=== PATIENT | female | born 1935 | race Caucasian/White ===

== ENCOUNTER 2023-07-08 21:12 | Inpatient (IN) | payer MEDICARE, OTHER ==
[~2023-07-08] VITALS: Ht 167.6 cm; Wt 59.0 kg
[2023-07-08 22:52] LABS: BASOPHILS # (AUTO) 0.1 K/uL (0.0-0.2); BASOPHILS % (AUTO) 1.3 % (0.0-2.0); EOSINOPHILS # (AUTO) 0.2 K/uL (0.0-0.7); EOSINOPHILS % (AUTO) 3.6 % (0.0-6.0); HEMATOCRIT 33 % (33-45); HEMOGLOBIN 11.1 g/dL (11.5-14.8); LYMPHOCYTES # (AUTO) 0.6 K/uL (0.8-4.8); LYMPHOCYTES % (AUTO) 12.8 % (20.0-44.0); MEAN CORPUSCULAR HEMOGLOBIN 31 PG (26.0-33.0); MEAN CORPUSCULAR HGB CONC 34 g/dl (31.0-36.0); MEAN CORPUSCULAR VOLUME 92 fL (82-100); MONOCYTES # (AUTO) 0.5 K/uL (0.1-1.30); MONOCYTES % (AUTO) 10.9 % (2.0-12.0); NEUTROPHILS # (AUTO) 3.5 K/uL (1.8-8.9); NEUTROPHILS % (AUTO) 71.4 % (43.0-81.0); PLATELET COUNT (AUTO) 239 K/uL (150-450); RED BLOOD CELL COUNT(AUTO) 3.59 MIL/uL (4.0-5.2); RED CELL DISTRIBUTION WIDTH 12.8 % (11.5-15.0); WHITE BLOOD COUNT (AUTO) 4.9 K/uL (4.3-11.0)
[2023-07-08 23:07] LABS: PARTIAL THROMBOPLASTIN TIME 26.1 SEC (24.3-34.3); PROTHROMBIN TIME 10.6 SECS (9.2-11.1)
[2023-07-08 23:09] LABS: LACTIC ACID 1.2 mmol/L (0.4-2.0)
[2023-07-08 23:14] LABS: APPEARANCE,URINE CLEAR (CLEAR); BILIRUBIN,URINE NEGATIVE (NEGATIVE); BLOOD, URINE TRACE-INTA Ery/uL (NEGATIVE); COLOR,URINE YELLOW (YELLOW); KETONES,URINE NEGATIVE (NEGATIVE); LEUKOCYTE ESTERASE ,URINE 1+ (NEGATIVE); NITRITE, URINE NEGATIVE (NEGATIVE); PROTEIN,URINE NEGATIVE (NEGATIVE); UGLUCOSE NEGATIVE (NEGATIVE); UROBILINOGEN,URINE 0.2 EU/dL (0.2)
[2023-07-08 23:15] LABS: CARBON DIOXIDE 32 mmol/L (21-32); CHLORIDE 102 mmol/L (98-107); CREATININE 0.7 mg/dL (0.6-1.3); GLUCOSE 123 mg/dL (74-106); POTASSIUM 3.1 mmol/L (3.5-5.1); SODIUM SERUM 140 mmol/L (136-145); UREA NITROGEN, BLOOD 16 mg/dL (7-18)
[2023-07-08 23:19] LABS: ALANINE AMINOTRANSFERASE 13 U/L (12-78); ALBUMIN 3.5 g/dL (3.4-5.0); ALKALINE PHOSPHATASE 130 U/L (46-116); ASPARTATE AMINOTRANSFERASE 15 U/L (15-37); BILIRUBIN,DIRECT 0.1 mg/dL (0.0-0.2); BILIRUBIN,TOTAL 0.3 mg/dL (0.2-1.0); TOTAL PROTEIN, SERUM 7.2 g/dL (6.4-8.2)
[2023-07-08] MEDS ORDERED: POTASSIUM CHLORIDE 20 MEQ TAB.PRT.SR PO ONE (23:30)
[2023-07-08] MEDS ORDERED: CEFTRIAXONE 1GM BAG (ER ONLY) 1 GM/50 ML PIGGYBACK IV ONE (23:30)
[2023-07-08 23:43] LABS: ADD URINE CULTURE YES; BACTERIA,URINE 2+ /HPF (None Seen); SQUAMOUS EPITHELIAL CELL,UR 0-2 /HPF (None Seen)
[2023-07-09] MEDS ORDERED: MAG HYDROX/AL HYDROX/SIMETH 30 ML UDC PO PRN
[2023-07-09] MEDS ORDERED: ZOLPIDEM TARTRATE 5 MG TABLET PO PRN
[2023-07-09] MEDS ORDERED: CEFTRIAXONE 1 G in IV D5W 50 ML IV SCH ×2
[2023-07-09] MEDS ORDERED: MAGNESIUM HYDROXIDE 30 ML UDC PO PRN
[2023-07-09] MEDS ORDERED: ONDANSETRON HCL/PF 4 MG/2 ML VIAL IVP PRN
[2023-07-09] MEDS ORDERED: Z GUARD REMEDY 4 OZ OINT TP PRN
[2023-07-09] MEDS ORDERED: ACETAMINOPHEN 325 MG TABLET PO PRN
[2023-07-09] MEDS ORDERED: LORAZEPAM INJ 2 MG/ML VIAL IV ONE ×2 (00:30→01:30)
[2023-07-09] MEDS ORDERED: LORAZEPAM INJ 2 MG/ML VIAL ONE ×3 (00:38→04:46)
[2023-07-09] MEDS ORDERED: CEFTRIAXONE 1GM BAG (ER ONLY) 50 ML IV ONE (01:27)
[2023-07-09] MEDS ORDERED: POTASSIUM CHLORIDE 20 MEQ TAB.PRT.SR PO ONE (01:28)
[2023-07-09] MEDS ORDERED: diphenhydrAMINE HCL 50 MG/ML VIAL ONE (02:18)
[2023-07-09] MEDS ORDERED: diphenhydrAMINE HCL 50 MG/ML VIAL IV PRN (02:30)
[2023-07-09] MEDS: LORAZEPAM INJ 2 MG/ML VIAL IV PRN ×2 (04:55→13:46)
[2023-07-09 05:08] VITALS: O2SAT 98
[2023-07-09 05:34] LABS: BASOPHILS # (AUTO) 0.1 K/uL (0.0-0.2); EOSINOPHILS # (AUTO) 0.1 K/uL (0.0-0.7); EOSINOPHILS % (AUTO) 2.3 % (0.0-6.0); HEMATOCRIT 38 % (33-45); HEMOGLOBIN 12.7 g/dL (11.5-14.8); LYMPHOCYTES # (AUTO) 0.9 K/uL (0.8-4.8); MEAN CORPUSCULAR HEMOGLOBIN 31 PG (26.0-33.0); MEAN CORPUSCULAR HGB CONC 34 g/dl (31.0-36.0); MEAN CORPUSCULAR VOLUME 92 fL (82-100); MONOCYTES # (AUTO) 0.6 K/uL (0.1-1.30); MONOCYTES % (AUTO) 9.7 % (2.0-12.0); NEUTROPHILS # (AUTO) 4.2 K/uL (1.8-8.9); PLATELET COUNT (AUTO) 254 K/uL (150-450); RED BLOOD CELL COUNT(AUTO) 4.09 MIL/uL (4.0-5.2); RED CELL DISTRIBUTION WIDTH 12.8 % (11.5-15.0); WHITE BLOOD COUNT (AUTO) 5.9 K/uL (4.3-11.0)
[2023-07-09 05:49] LABS: CALCIUM, SERUM 8.9 mg/dL (8.5-10.1); CARBON DIOXIDE 28 mmol/L (21-32); CHLORIDE 103 mmol/L (98-107); CREATININE 0.6 mg/dL (0.6-1.3); GLUCOSE 111 mg/dL (74-106); MAGNESIUM 2.1 mg/dL (1.8-2.4); PHOSPHORUS 3.3 mg/dL (2.5-4.9); POTASSIUM 4.2 mmol/L (3.5-5.1); SODIUM SERUM 140 mmol/L (136-145); UREA NITROGEN, BLOOD 11 mg/dL (7-18)
[2023-07-09 06:02] LABS: THYROID STIMULATING HORMONE 2.837 uIU/mL (0.358-3.74)
[2023-07-09] MEDS: PANTOPRAZOLE 40 MG TABLET.DR PO SCH ×2 (07:30→08:58)
[2023-07-09] MEDS ORDERED: ASPI-1169 PO (08:13)
[2023-07-09] MEDS ORDERED: ROSU20TA2 PO (08:13)
[2023-07-09] MEDS ORDERED: IBUP-1955 PO (08:13)
[2023-07-09] MEDS ORDERED: ENAL20TA18 PO (08:13)
[2023-07-09] MEDS ORDERED: QUET25TA PO (08:13)
[2023-07-09] MEDS ORDERED: LORA-259 PO (08:13)
[2023-07-09 12:00] VITALS: BP 152/83; TEMP 98.8; O2SAT 98
[2023-07-09] MEDS: ENSURE ENLIVE 237 ML LIQUID (VANILLA) PO SCH (17:31)
[2023-07-09 20:00] VITALS: BP 147/97; TEMP 98; O2SAT 97
[2023-07-09] MEDS: CEFTRIAXONE 1 G in IV D5W 50 ML IV SCH (22:22)
[2023-07-10] VITALS: BP 154/95; TEMP 97.8; O2SAT 97
[2023-07-10 04:00] VITALS: BP 124/89; TEMP 97.7; O2SAT 95
[2023-07-10 06:52] LABS: BASOPHILS % (AUTO) 0.6 % (0.0-2.0); EOSINOPHILS # (AUTO) 0.1 K/uL (0.0-0.7); EOSINOPHILS % (AUTO) 1.1 % (0.0-6.0); HEMATOCRIT 46 % (33-45); HEMOGLOBIN 15.2 g/dL (11.5-14.8); LYMPHOCYTES # (AUTO) 0.8 K/uL (0.8-4.8); LYMPHOCYTES % (AUTO) 12.8 % (20.0-44.0); MEAN CORPUSCULAR HEMOGLOBIN 31 PG (26.0-33.0); MEAN CORPUSCULAR HGB CONC 33 g/dl (31.0-36.0); MEAN CORPUSCULAR VOLUME 92 fL (82-100); MONOCYTES # (AUTO) 0.6 K/uL (0.1-1.30); MONOCYTES % (AUTO) 9.4 % (2.0-12.0); NEUTROPHILS % (AUTO) 76.1 % (43.0-81.0); PLATELET COUNT (AUTO) 305 K/uL (150-450); RED BLOOD CELL COUNT(AUTO) 4.94 MIL/uL (4.0-5.2); RED CELL DISTRIBUTION WIDTH 12.9 % (11.5-15.0); WHITE BLOOD COUNT (AUTO) 6.6 K/uL (4.3-11.0)
[2023-07-10] MEDS: LORAZEPAM INJ 2 MG/ML VIAL IV PRN (07:03)
[2023-07-10 07:17] LABS: CALCIUM, SERUM 9.3 mg/dL (8.5-10.1); CREATININE 0.6 mg/dL (0.6-1.3); MAGNESIUM 2.2 mg/dL (1.8-2.4); PHOSPHORUS 4.3 mg/dL (2.5-4.9); POTASSIUM 3.6 mmol/L (3.5-5.1)
[2023-07-10 07:30] VITALS: BP 96/72; TEMP 97.5; O2SAT 100
[2023-07-10] MEDS: PANTOPRAZOLE 40 MG TABLET.DR PO SCH (07:43)
[2023-07-10] MEDS: ENSURE ENLIVE 237 ML LIQUID (VANILLA) PO SCH ×2 (09:08→17:01)
[2023-07-10] MEDS: QUETIAPINE FUMARATE 25 MG TABLET PO SCH (10:29)
[2023-07-10 16:00] VITALS: BP 111/85; TEMP 97.8; O2SAT 96
[2023-07-10 20:49] VITALS: BP 102/63; TEMP 98.2; O2SAT 99
[2023-07-10] MEDS ORDERED: LORAZEPAM INJ 2 MG/ML VIAL IV PRN (21:00)
[2023-07-10] MEDS: MIRTAZAPINE 15 MG TABLET PO SCH (22:23)
[2023-07-10] MEDS: CEFTRIAXONE 1 G in IV D5W 50 ML IV SCH (22:24)
[2023-07-11 00:24] VITALS: BP 108/79; TEMP 98.2; O2SAT 98
[2023-07-11 04:38] VITALS: BP 140/97; TEMP 98.2; O2SAT 95
[2023-07-11 06:43] LABS: BASOPHILS % (AUTO) 0.6 % (0.0-2.0); EOSINOPHILS # (AUTO) 0.1 K/uL (0.0-0.7); EOSINOPHILS % (AUTO) 1.1 % (0.0-6.0); HEMATOCRIT 40 % (33-45); HEMOGLOBIN 14.1 g/dL (11.5-14.8); LYMPHOCYTES % (AUTO) 15.1 % (20.0-44.0); MEAN CORPUSCULAR HEMOGLOBIN 31 PG (26.0-33.0); MEAN CORPUSCULAR HGB CONC 35 g/dl (31.0-36.0); MEAN CORPUSCULAR VOLUME 90 fL (82-100); MONOCYTES # (AUTO) 0.6 K/uL (0.1-1.30); NEUTROPHILS # (AUTO) 4.6 K/uL (1.8-8.9); NEUTROPHILS % (AUTO) 73.2 % (43.0-81.0); PLATELET COUNT (AUTO) 292 K/uL (150-450); RED BLOOD CELL COUNT(AUTO) 4.52 MIL/uL (4.0-5.2); RED CELL DISTRIBUTION WIDTH 12.7 % (11.5-15.0); WHITE BLOOD COUNT (AUTO) 6.3 K/uL (4.3-11.0)
[2023-07-11 07:12] LABS: CALCIUM, SERUM 9.3 mg/dL (8.5-10.1); CARBON DIOXIDE 23 mmol/L (21-32); CHLORIDE 96 mmol/L (98-107); CREATININE 0.8 mg/dL (0.6-1.3); GLUCOSE 103 mg/dL (74-106); MAGNESIUM 2.3 mg/dL (1.8-2.4); PHOSPHORUS 4.4 mg/dL (2.5-4.9); POTASSIUM 3.6 mmol/L (3.5-5.1); SODIUM SERUM 133 mmol/L (136-145); UREA NITROGEN, BLOOD 27 mg/dL (7-18)
[2023-07-11] MEDS: ASPIRIN 81 MG TAB.CHEW PO SCH (08:26)
[2023-07-11] MEDS: PANTOPRAZOLE 40 MG TABLET.DR PO SCH (08:26)
[2023-07-11] MEDS: ENSURE ENLIVE 237 ML LIQUID (VANILLA) PO SCH ×2 (08:27→17:33)
[2023-07-11] MEDS: QUETIAPINE FUMARATE 25 MG TABLET PO SCH (08:27)
[2023-07-11] MEDS: ENALAPRIL MALEATE (10 MG) 10 MG TABLET PO SCH (08:29)
[2023-07-11] MEDS ORDERED: QUETIAPINE FUMARATE 25 MG TABLET PO SCH (09:00)
[2023-07-11] MEDS ORDERED: CEPH500C2 PO (14:16)
[2023-07-11] MEDS: CEFTRIAXONE 1 G in IV D5W 50 ML IV SCH (21:28)
[2023-07-11] MEDS: MIRTAZAPINE 15 MG TABLET PO SCH (22:01)
[2023-07-12] MEDS: QUETIAPINE FUMARATE 25 MG TABLET PO SCH (08:20)
[2023-07-12] MEDS: PANTOPRAZOLE 40 MG TABLET.DR PO SCH (08:20)
[2023-07-12] MEDS: ASPIRIN 81 MG TAB.CHEW PO SCH (08:21)
[2023-07-12 08:30] VITALS: BP 83/80; TEMP 98.3; O2SAT 96
[2023-07-12 08:34] VITALS: BP 88/55
[2023-07-12] MEDS: ENALAPRIL MALEATE (10 MG) 10 MG TABLET PO SCH (08:34)
[2023-07-12] MEDS: ENSURE ENLIVE 237 ML LIQUID (VANILLA) PO SCH (08:34)
[2023-07-12] MEDS ORDERED: IV NS 0.9% 1,000 ML BAG IV ONE (10:30)
== END 2023-07-12 15:00 | DRG 640 ==
LOC: ER 21:24 → TELE 07-09 01:58
PROVIDERS: ADMIT Student in an Organized Health Care Education/Training Program; ATTEND Nurse Practitioner Acute Care
DX: R62.7 Adult failure to thrive (principal); G93.41 Metabolic encephalopathy; N39.0 Urinary tract infection, site not specified; F03.918 Unspecified dementia, unspecified severity, with other behavioral disturbance; F03.93 Unspecified dementia, unspecified severity, with mood disturbance; E87.6 Hypokalemia; Z20.822 Contact with and (suspected) exposure to COVID-19; W19.XXXA Unspecified fall, initial encounter; Y92.9 Unspecified place or not applicable; I10 Essential (primary) hypertension; D64.9 Anemia, unspecified; S00.03XA Contusion of scalp, initial encounter; B96.89 Other specified bacterial agents as the cause of diseases classified elsewhere; F39 Unspecified mood [affective] disorder
CPT/HCPCS: 36415; 70450-TC; 70486-TC; 71045-TC; 72125-TC; 80048-TC; 80076-TC; 81001; 83605-TC; 83735-TC; 84100-TC; 84443-TC; 84484-TC; 85025-TC; 85730-TC; 87040-TC; 87086-TC; 93307-TC; 97110-TC; 97116-TC; 97530-TC; A4223; G0378; J0696; J1200; J2060; J7040; J7050; J7060

== ENCOUNTER 2024-06-03 22:19 | Inpatient (IN) | payer MEDICARE, OTHER ==
[~2024-06-03] VITALS: Ht 165.1 cm; Wt 52.4 kg
[~2024-06-03 22:19] MED LIST: ASPI-1169 PO; CEPH500C2 PO; ENAL20TA18 PO; IBUP-1955 PO; IVER3TAB2 PO; LORA-259 PO; QUET25TA PO; ROSU20TA2 PO
[2024-06-03] MEDS: IV NS 0.9% 1,000 ML BAG IV ONE (23:06)
[2024-06-03 23:25] LABS: CALCIUM, SERUM 8.1 mg/dL (8.5-10.1); CARBON DIOXIDE 33 mmol/L (21-32); CHLORIDE 110 mmol/L (98-107); GLUCOSE 104 mg/dL (74-106); POTASSIUM 4.3 mmol/L (3.5-5.1); SODIUM SERUM 148 mmol/L (136-145); UREA NITROGEN, BLOOD 32 mg/dL (7-18)
[2024-06-03 23:26] LABS: INR 1.13 (0.91-1.10); PARTIAL THROMBOPLASTIN TIME 26.2 SEC (24.3-34.3); PROTHROMBIN TIME 11.9 SECS (9.2-11.1)
[2024-06-03 23:32] LABS: APPEARANCE,URINE CLEAR (CLEAR); BILIRUBIN,URINE 1+ (NEGATIVE); BLOOD, URINE TRACE-INTA Ery/uL (NEGATIVE); COLOR,URINE YELLOW (YELLOW); KETONES,URINE TRACE mg/dL (NEGATIVE); LEUKOCYTE ESTERASE ,URINE NEGATIVE (NEGATIVE); NITRITE, URINE NEGATIVE (NEGATIVE); PROTEIN,URINE 2+ mg/dl (NEGATIVE); UGLUCOSE NEGATIVE (NEGATIVE)
[2024-06-03 23:32] LABS: ALANINE AMINOTRANSFERASE 7 U/L (12-78); ALBUMIN 2.3 g/dL (3.4-5.0); ALKALINE PHOSPHATASE 82 U/L (46-116); ASPARTATE AMINOTRANSFERASE 10 U/L (15-37); BILIRUBIN,DIRECT 0.1 mg/dL (0.0-0.2); BILIRUBIN,TOTAL 0.4 mg/dL (0.2-1.0); TOTAL PROTEIN, SERUM 6.8 g/dL (6.4-8.2)
[2024-06-03 23:34] LABS: LACTIC ACID 1.6 mmol/L (0.4-2.0)
[2024-06-03 23:58] LABS: BASOPHILS % (AUTO) 0.2 % (0.0-2.0); EOSINOPHILS % (AUTO) 0.6 % (0.0-6.0); HEMATOCRIT 36 % (33-45); LYMPHOCYTES % (AUTO) 16.9 % (20.0-44.0); MEAN CORPUSCULAR HEMOGLOBIN 33 PG (26.0-33.0); MEAN CORPUSCULAR HGB CONC 33 g/dl (31.0-36.0); MEAN CORPUSCULAR VOLUME 99 fL (82-100); MONOCYTES # (AUTO) 0.9 K/uL (0.1-1.30); MONOCYTES % (AUTO) 14.7 % (2.0-12.0); NEUTROPHILS # (AUTO) 4.2 K/uL (1.8-8.9); NEUTROPHILS % (AUTO) 67.6 % (43.0-81.0); PLATELET COUNT (AUTO) 147 K/uL (150-450); RED BLOOD CELL COUNT(AUTO) 3.66 MIL/uL (4.0-5.2); RED CELL DISTRIBUTION WIDTH 13.7 % (11.5-15.0); WHITE BLOOD COUNT (AUTO) 6.2 K/uL (4.3-11.0)
[2024-06-04 00:33] LABS: ADD URINE CULTURE NO; BACTERIA,URINE 1+ /HPF (None Seen); HYALINE CASTS, URINE Few /LPF (None Seen); MUCUS,URINE Moderate /LPF (None Seen); WBC,URINE NONE SEEN /HPF (0-3)
[2024-06-04] MEDS ORDERED: HYDROCODONE/APAP 5/325MG TABLET PO PRN (01:00)
[2024-06-04] MEDS ORDERED: MAGNESIUM HYDROXIDE 30 ML UDC PO PRN (01:00)
[2024-06-04] MEDS ORDERED: MAG HYDROX/AL HYDROX/SIMETH 30 ML UDC PO PRN (01:00)
[2024-06-04] MEDS: CEFTRIAXONE 1GM BAG (ER ONLY) 1 GM/50 ML PIGGYBACK IV ONE (01:00)
[2024-06-04] MEDS ORDERED: Z GUARD REMEDY 4 OZ OINT TP PRN (01:00)
[2024-06-04] MEDS ORDERED: ONDANSETRON HCL/PF 4 MG/2 ML VIAL IVP PRN (01:00)
[2024-06-04] MEDS ORDERED: CEFTRIAXONE 1GM BAG (ER ONLY) 50 ML IV ONE (01:17)
[2024-06-04 02:00] VITALS: BP 131/65; TEMP 97.5; O2SAT 96
[2024-06-04] MEDS: IV D5/0.45 NACL 1,000 ML IV PRN (02:24)
[2024-06-04] MEDS ORDERED: OMEP20CA15 PO (03:14)
[2024-06-04] MEDS ORDERED: MAGN400O21 PO (03:14)
[2024-06-04] MEDS ORDERED: LATA7.5D EACHEYE (03:14)
[2024-06-04] MEDS ORDERED: ACET325C7 PO (03:14)
[2024-06-04] MEDS ORDERED: SENN-261 PO (03:14)
[2024-06-04] MEDS ORDERED: MIDO5TAB4 PO (03:14)
[2024-06-04] MEDS ORDERED: CALC-770 PO (03:14)
[2024-06-04] MEDS ORDERED: GABA-532 PO (03:14)
[2024-06-04] MEDS ORDERED: ZOLP5TAB2 PO (03:14)
[2024-06-04] MEDS ORDERED: VIT1CAPS9 PO (03:14)
[2024-06-04] MEDS ORDERED: ACET-2605 PO (03:14)
[2024-06-04] MEDS ORDERED: DIVA125C5 PO (03:14)
[2024-06-04 04:05] VITALS: BP 131/83; TEMP 98.4; O2SAT 94
[2024-06-04 08:00] VITALS: BP 141/72; TEMP 97.9; O2SAT 97
[2024-06-04] MEDS ORDERED: MELA5TAB PO (08:04)
[2024-06-04] MEDS ORDERED: NA P133E RC (08:04)
[2024-06-04] MEDS ORDERED: GABA300C PO (08:04)
[2024-06-04] MEDS ORDERED: MAGN400O6 PO (08:04)
[2024-06-04] MEDS ORDERED: DIVA125T32 PO (08:04)
[2024-06-04] MEDS ORDERED: ACET325T53 PO (08:04)
[2024-06-04] MEDS: PANTOPRAZOLE 40 MG VIAL IV SCH (08:16)
[2024-06-04] MEDS ORDERED: MIDODRINE HCL (5MG) 5 MG TABLET PO PRN (09:30)
[2024-06-04] MEDS: DIVALPROEX SODIUM 125 MG TABLET.DR PO SCH (13:19)
[2024-06-04] MEDS: GABAPENTIN 300 MG CAPSULE PO SCH (13:19)
[2024-06-04 16:00] VITALS: BP 152/80; TEMP 97.8; O2SAT 96
[2024-06-04] MEDS: ENOXAPARIN SODIUM 30 MG/0.3 ML DISP.SYRIN SQ SCH (16:21)
[2024-06-04] MEDS: QUETIAPINE FUMARATE 25 MG TABLET PO SCH (16:21)
[2024-06-04] MEDS: CEFTRIAXONE 1 G in IV D5W 50 ML IV SCH (20:00)
[2024-06-04] MEDS: ACETAMINOPHEN 325 MG TABLET PO PRN (20:56)
[2024-06-04] MEDS: LATANOPROST EYE DROP 0.005% 2.5 ML BOTTLE EACHEYE SCH (21:05)
[2024-06-04 22:14] VITALS: BP 145/93; TEMP 100.4; O2SAT 97
[2024-06-05 00:12] VITALS: BP 145/93; TEMP 99; O2SAT 97
[2024-06-05 07:00] LABS: BASOPHILS % (AUTO) 0.4 % (0.0-2.0); EOSINOPHILS # (AUTO) 0.1 K/uL (0.0-0.7); EOSINOPHILS % (AUTO) 2.3 % (0.0-6.0); HEMATOCRIT 33 % (33-45); HEMOGLOBIN 10.8 g/dL (11.5-14.8); LYMPHOCYTES # (AUTO) 0.7 K/uL (0.8-4.8); LYMPHOCYTES % (AUTO) 12.8 % (20.0-44.0); MEAN CORPUSCULAR HEMOGLOBIN 32 PG (26.0-33.0); MEAN CORPUSCULAR HGB CONC 33 g/dl (31.0-36.0); MEAN CORPUSCULAR VOLUME 95 fL (82-100); MONOCYTES # (AUTO) 0.9 K/uL (0.1-1.30); MONOCYTES % (AUTO) 16.8 % (2.0-12.0); NEUTROPHILS # (AUTO) 3.8 K/uL (1.8-8.9); NEUTROPHILS % (AUTO) 67.7 % (43.0-81.0); PLATELET COUNT (AUTO) 152 K/uL (150-450); RED BLOOD CELL COUNT(AUTO) 3.44 MIL/uL (4.0-5.2); RED CELL DISTRIBUTION WIDTH 13.1 % (11.5-15.0); WHITE BLOOD COUNT (AUTO) 5.6 K/uL (4.3-11.0)
[2024-06-05 07:34] LABS: CALCIUM, SERUM 8.1 mg/dL (8.5-10.1); CARBON DIOXIDE 32 mmol/L (21-32); CHLORIDE 107 mmol/L (98-107); CREATININE 0.5 mg/dL (0.6-1.3); GLUCOSE 103 mg/dL (74-106); MAGNESIUM 2.1 mg/dL (1.8-2.4); POTASSIUM 3.4 mmol/L (3.5-5.1); SODIUM SERUM 143 mmol/L (136-145); UREA NITROGEN, BLOOD 14 mg/dL (7-18)
[2024-06-05 08:00] VITALS: BP 140/78; TEMP 98; O2SAT 97
[2024-06-05] MEDS: ASPIRIN 81 MG TAB.CHEW PO SCH (08:30)
[2024-06-05] MEDS: PANTOPRAZOLE 40 MG TABLET.DR PO SCH (08:30)
[2024-06-05] MEDS: LISINOPRIL (20MG) 20 MG TABLET PO SCH (08:31)
[2024-06-05 08:44] LABS: BASOPHILS % (MANUAL) 0 % (0.0-2.0); EOSINOPHILS % (MANUAL) 3 % (0-4); LYMPHOCYTES % (MANUAL) 16 % (16-48); MONOCYTES % (MANUAL) 16 % (0-11.0); NEUTROPHILS % (MANUAL) 65 (42-76); PLATELET ESTIMATE ADEQUATE
[2024-06-05] MEDS ORDERED: POTASSIUM CHLORIDE 20 MEQ TAB.PRT.SR PO SCH (10:00)
[2024-06-05] MEDS: POTASSIUM CHLORIDE 20 MEQ POWDER PACKET PO SCH (10:22)
[2024-06-05 16:00] VITALS: BP 113/71; TEMP 98.2; O2SAT 95
[2024-06-06] VITALS: BP 115/63; TEMP 98.2; O2SAT 95
[2024-06-06 07:16] LABS: BASOPHILS % (AUTO) 0.4 % (0.0-2.0); EOSINOPHILS # (AUTO) 0.2 K/uL (0.0-0.7); EOSINOPHILS % (AUTO) 3.2 % (0.0-6.0); HEMATOCRIT 33 % (33-45); LYMPHOCYTES # (AUTO) 0.7 K/uL (0.8-4.8); LYMPHOCYTES % (AUTO) 13.8 % (20.0-44.0); MEAN CORPUSCULAR HEMOGLOBIN 32 PG (26.0-33.0); MEAN CORPUSCULAR HGB CONC 33 g/dl (31.0-36.0); MEAN CORPUSCULAR VOLUME 94 fL (82-100); MONOCYTES # (AUTO) 0.7 K/uL (0.1-1.30); MONOCYTES % (AUTO) 13.6 % (2.0-12.0); NEUTROPHILS # (AUTO) 3.5 K/uL (1.8-8.9); PLATELET COUNT (AUTO) 176 K/uL (150-450); RED BLOOD CELL COUNT(AUTO) 3.51 MIL/uL (4.0-5.2); WHITE BLOOD COUNT (AUTO) 5.1 K/uL (4.3-11.0)
[2024-06-06 07:37] LABS: CARBON DIOXIDE 29 mmol/L (21-32); CHLORIDE 110 mmol/L (98-107); CREATININE 0.5 mg/dL (0.6-1.3); GLUCOSE 101 mg/dL (74-106); POTASSIUM 3.7 mmol/L (3.5-5.1); SODIUM SERUM 146 mmol/L (136-145); UREA NITROGEN, BLOOD 9 mg/dL (7-18)
[2024-06-06 08:00] VITALS: BP 151/77; TEMP 98.1; O2SAT 96
[2024-06-06 16:00] VITALS: BP 156/81; TEMP 97.8; O2SAT 95
[2024-06-07] VITALS: BP 135/63; TEMP 99.1; O2SAT 95
[2024-06-07 04:00] VITALS: BP 154/77; TEMP 97.7; O2SAT 96
[2024-06-07 07:39] LABS: CALCIUM, SERUM 8.3 mg/dL (8.5-10.1); CARBON DIOXIDE 28 mmol/L (21-32); CHLORIDE 104 mmol/L (98-107); CREATININE 0.6 mg/dL (0.6-1.3); GLUCOSE 95 mg/dL (74-106); POTASSIUM 3.8 mmol/L (3.5-5.1); SODIUM SERUM 137 mmol/L (136-145); UREA NITROGEN, BLOOD 12 mg/dL (7-18)
[2024-06-07 08:00] VITALS: BP 157/86; TEMP 99.3; O2SAT 94
[2024-06-07 09:37] VITALS: BP 157/86
== END 2024-06-07 15:20 | DRG 640 ==
LOC: ER 22:21 → MEDSG1 06-04 01:00
PROVIDERS: ADMIT Internal Medicine; ATTEND Nurse Practitioner Acute Care
DX: E86.0 Dehydration (principal); G93.41 Metabolic encephalopathy; D68.59 Other primary thrombophilia; E44.0 Moderate protein-calorie malnutrition; N17.9 Acute kidney failure, unspecified; E87.0 Hyperosmolality and hypernatremia; Z66 Do not resuscitate; F03.90 Unspecified dementia, unspecified severity, without behavioral disturbance, psychotic disturbance, mood disturbance, and anxiety; Z87.440 Personal history of urinary (tract) infections; Z74.09 Other reduced mobility; R62.7 Adult failure to thrive; Z79.82 Long term (current) use of aspirin; Z79.899 Other long term (current) drug therapy; E88.09 Other disorders of plasma-protein metabolism, not elsewhere classified; I10 Essential (primary) hypertension; E86.1 Hypovolemia; E78.5 Hyperlipidemia, unspecified; M19.90 Unspecified osteoarthritis, unspecified site; R00.1 Bradycardia, unspecified; I95.9 Hypotension, unspecified
CPT/HCPCS: 36415; 70450-TC; 71045-TC; 80048-TC; 80076-TC; 81001; 83605-TC; 83735-TC; 84100-TC; 84443-TC; 84484-TC; 85025-TC; 85730-TC; 87040-TC; 87081-TC; 87086-TC; 92526; 92611-TC; 94799-TC; 97110-TC; 97112-TC; 97530-TC; 97535-TC; A4223; G0378; J0696; J1650; J2470; J3490; J7050; J7060